=== PATIENT | male | born 1990 | race Hispanic/Latino ===

== ENCOUNTER 2018-02-21 13:15 | Emergency (ER) | payer SELFPAY | END 2018-02-21 15:23 | disposition home or self-care (01) | LOC: EDH 13:15 | DX: F41.9 Anxiety disorder, unspecified (principal); T50.995A Adverse effect of other drugs, medicaments and biological substances, initial encounter; R06.02 Shortness of breath; R25.1 Tremor, unspecified; Y92.89 Other specified places as the place of occurrence of the external cause | CPT/HCPCS: 93005 ==